=== PATIENT | male | born 1990 | race Caucasian/White ===

== ENCOUNTER 2021-07-24 16:08 | Emergency (ER) | payer OTHER, SELFPAY ==
[2021-07-24 16:14] VITALS: BP 181/128; PULSE 71; RESP 18; TEMP 36.4; O2SAT 100; BMI 35.3
--- NOTE | 2021-07-24 16:45 | ED_ITS ---
Documented by User: MARYJANE Erickson 07/25/21 07:07 HPI - Back Pain/Injury General: Chief Complaint: Back Pain/Injury Stated Complaint: Sciatic Nerve Time Seen by Provider: 07/24/21 16:38 Source: patient and family () Mode of arrival: ambulatory Limitations: no limitations History of Present Illness: HPI Narrative: Patient is a 31-year-old male who presents to ED today with complaints of possible sciatica nerve pain. Patient tells me he is having pain to his right lower back with radiation down into his right buttock and then down the lateral aspect of his lower leg. Patient tells me he has had sciatica pains previously. He states this pain began approximately 5 days ago following a long car ride. He has not noticed any redness or swelling to his lower extremity. He is not complaining of groin or genital paresthesias. He has not had any issues with urinary retention or bowel incontinence. MD elicited complaint: back pain Pertinent past history: prior back pain Onset (ago): day(s) Severity: severe Pain scale (0-10): 8 Similar Symptoms Previously: Yes Quality: sharp and other (shooting) Location: right lower back Radiation: right leg below the knee Exacerbating factors: movement and walking Relieving factors: immobilization Associated symptoms: Reports no associated symptoms; Deny abdominal pain, chills, dysuria, fatigue or fever(s) Work related injury: No Review of Systems Const: Denies: fever(s), chills, body aches, fatigue or malaise Card: Denies: chest pain Resp: Denies: dyspnea GI: Denies: abdominal pain : Denies: flank pain or dysuria Musc: Reports: back pain and extremity pain; Denies: neck pain, extremity swelling, joint pain, joint swelling, joint redness, joint warmth, joint stiffness, limited range of motion, muscle cramps, muscle weakness or decrease in muscle mass Skin/Breast: Denies: rash Neuro: Reports: sensory changes (pain radiating down R LE); Denies: headache(s), weakness in extremities or lack of coordination Physical Exam Const: COMMON NORMALS: no acute distress, patient oriented x3, no limitations and alert GENERAL APPEARANCE: cooperative NUTRITIONAL APPEARANCE: obese ORIENTATION/CONSCIOUSNESS: Yes awake, Yes oriented to person, Yes oriented to place and Yes oriented to time HENMT: COMMON NORMALS: normocephalic and atraumatic HEAD & SCALP: normocephalic and atraumatic Neck/C-Spine: COMMON NORMALS: full ROM CERVICAL SPINE: No Cervical spine tenderness Back/Pelvis: THORACIC SPINE/UPPER BACK: Yes normal to inspection, No thoracic spinal tenderness, No paraspinal muscle tenderness and No paraspinal muscle spasm LUMBAR SPINE/LOWER BACK: Yes normal to inspection, No lumbar spinal tenderness, No paraspinal muscle spasm and Yes straight leg raise positive right PELVIS: Yes sciatic notch tenderness SACROILIAC JOINTS: Yes SI joint(s) abnormal SI joint details: tender to palpation Extremity: COMMON NORMALS: full ROM, no joint enlargement, no calf tenderness and no pedal edema GENERAL: Yes normal exam except as noted Neuro: COMMON NORMALS: patient oriented x3, moves all extremities, no focal motor deficits and no sensory deficits noted SENSORIUM/ORIENTATION: Yes alert, Yes oriented to person, Yes oriented to place and Yes oriented to time MOTOR EXAM: 5/5 motor strength present throughout Skin: COMMON NORMALS: no rashes or lesions noted GENERAL SKIN EXAM: no rashes or lesions noted TRAUMA: no lacerations or abrasions Course Vital Signs: Vital signs: Vital Signs Temperature 97.6 F 07/24/21 16:14 Pulse Rate 89 07/24/21 16:48 Respiratory Rate 18 07/24/21 16:14 Blood Pressure 178/95 07/24/21 16:48 Pulse Oximetry 99 07/24/21 16:48 MDM - Back Pain/Injury MDM Narrative: Medical decision making narrative: Patient here with symptoms consistent with right-sided sciatica. He has no acute neurological deficits on physical exam. He was given IM injections of Norflex, Toradol, Dexamethasone. Care will be transferred to [facility] Tru[facility] pending administration of these drugs, patient response, and discharge care. Discharge Plan Discharge Patient Disposition: Home Condition: Stable Prescriptions: New methocarbamol 500 mg tablet 500 mg PO TID PRN (Reason: muscle pain) Qty: 20 RF: 0 Discharge Orders: Discharge ED (Routine); Ordered 07/24/21 Ordered By: Ralph Stevens Discharge Diet: Usual diet Discharge Activity: Increase activity as tolerated Patient Instructions: Back Pain (ED), Opioid Safety Activity Restrictions/Additional Instructions: Activity as tolerated. Gentle stretching and range of motion exercises. Drink plenty of fluids with medications. Use acetaminophen and ibuprofen to control pain. Use methocarbamol 500 mg 3 times a day as needed for muscle spasms and low back pain. Follow-up with primary care as needed. Return to the ED for new concerns. Coding Level of Care Code ED Paper Making Machine Operator for Chg Fwd Exam Detailed Documented by User: DANIELLE Hart 07/24/21 17:03 HPI - Back Pain/Injury General: Chief Complaint: Back Pain/Injury Stated Complaint: Sciatic Nerve Time Seen by Provider: 07/24/21 16:38 Course ED course: 1700, patient was resting well. This patient was seen by Amairani Paris PA-C, was given injections for pain including orphenadrine and ketorolac. Patient was also given dexamethasone for inflammation. Patient was discharged to home with instructions to use acetaminophen and ibuprofen for further pain relief. And methocarbamol was added to regimen for muscle spasms and muscle pain. Vital Signs: Vital signs: Vital Signs Temperature 97.6 F 07/24/21 16:14 Pulse Rate 89 07/24/21 16:48 Respiratory Rate 18 07/24/21 16:14 Blood Pressure 178/95 07/24/21 16:48 Pulse Oximetry 99 07/24/21 16:48 Discharge Plan Discharge Patient Disposition: Home Condition: Stable Prescriptions: New methocarbamol 500 mg tablet 500 mg PO TID PRN (Reason: muscle pain) Qty: 20 RF: 0 Discharge Orders: Discharge ED (Routine); Ordered 07/24/21 Ordered By: Ralph Stevens Discharge Diet: Usual diet Discharge Activity: Increase activity as tolerated Patient Instructions: Back Pain (ED), Opioid Safety Activity Restrictions/Additional Instructions: Activity as tolerated. Gentle stretching and range of motion exercises. Drink plenty of fluids with medications. Use acetaminophen and ibuprofen to control pain. Use methocarbamol 500 mg 3 times a day as needed for muscle spasms and low back pain. Follow-up with primary care as needed. Return to the ED for new concerns. Coding Level of Care Code ED Paper Making Machine Operator for Chg Fwd Exam Detailed
[2021-07-24 16:48] VITALS: BP 178/95; PULSE 89; O2SAT 99
[2021-07-24] MEDS: ketorolac 60 mg/2 mL INJ IM (17:05)
[2021-07-24] MEDS: orphenadrine 30 mg/mL Inj 2 mL 60 MG IM (17:05)
[2021-07-24] MEDS: dexamethasone 10 mg/mL INJ 8 MG IM (17:05)
== END 2021-07-24 17:30 | disposition home or self-care (01) ==
PROVIDERS: Emergency Provider Nurse Practitioner Family
DX: M54.50 Low back pain, unspecified (principal)
CPT/HCPCS: 96372; 99283; J1100; J1885; J2360